=== PATIENT | male | born 1965 | race Caucasian/White ===

== ENCOUNTER → 2021-07-01 | Day surgery (SDC) | payer OTHER ==
[~2021-07-01] VITALS: Ht 175.3 cm; Wt 89.8 kg
[~2021-07-01] MED LIST: IBUPROFEN800 MG PO; PRIMATENE MIS11.7 GM
== END | disposition home or self-care (01) ==
LOC: FAS 09:30
DX: Z12.11 Encounter for screening for malignant neoplasm of colon (principal); K63.5 Polyp of colon; K57.30 Diverticulosis of large intestine without perforation or abscess without bleeding; Z87.891 Personal history of nicotine dependence
CPT/HCPCS: J2250; J2704; J7120